=== PATIENT | female | born 1985 | race Two or more races ===

== ENCOUNTER 2024-07-24 09:04 | Emergency (ER) | payer OTHER ==
[~2024-07-24] VITALS: Ht 154.9 cm; Wt 75.7 kg
[2024-07-24 10:33] LABS: HEMATOCRIT 35.8 % (36.0-45.00); HEMOGLOBIN 12.3 g/dL (12.0-15.00); MEAN CELL VOLUME 95.1 fL (80.00-100.00); MEAN CORPUSCULAR HEMOGLOBIN 32.7 pg (27.00-32.0); MEAN CORPUSCULAR HGB CONC 34.4 g/dl (32.0-36.0); PLATELET COUNT 204 K/uL (150-450); RED BLOOD COUNT 3.76 M/uL (4.00-6.00); RED CELL DISTRIBUTION WIDTH 14.1 % (11.5-14.5)
[2024-07-24] MEDS ORDERED: KETOROLAC TROMETHAMINE 30 MG VIAL IM STA (11:01)
== END 2024-07-24 11:08 | disposition home or self-care (01) ==
LOC: ER 09:06
PROVIDERS: General Practice
DX: R50.9 Fever, unspecified (principal)